=== PATIENT | female | born 1960 | race Caucasian/White ===

== ENCOUNTER → 2021-01-09 | Day surgery (SDC) | payer BC ==
[~2021-01-09] VITALS: Ht 152.4 cm; Wt 91.0 kg
[~2021-01-09] MED LIST: HYDROmorphone 2 MG/ML VIAL IVP PRN; IV RINGERS,LACTATED 1000ML 1,000 ML IV ONE; IV RINGERS,LACTATED 1000ML 1,000 ML IV SCH; LIDOCAINE 2% PF 5 ML VIAL. ONE; METF10007 PO; MORPHINE SULFATE 2 MG/ML VIAL. IVP PRN; PROCHLORPERAZINE 10 MG/2 ML VIAL. IVP PRN; PROPOFOL 10 MG/ML (20ML) VIAL. IV ONE; fentaNYL PF VIAL 100 MCG/2 ML VIAL IVP PRN
[2021-01-09 09:53] VITALS: BP 124/63
--- NOTE | 2021-01-13 09:11 | PATHOLOGY ---
[facility] Accession Number: [id number] . 01 Material submitted: . hepatic flexure - HEPATIC FLEXURE POLYP . 01 Clinical history: . RECTAL BLEEDING . 02 Diagnosis: Colon biopsies, hepatic flexure polyp: - Tubular adenoma. ([facility]:samra; 01/12/2021) MBR 01/12/2021 1559 Local . 02 Comment: There is no high-grade dysplasia or evidence of malignancy. ([facility]UAM:samra; 01/12/2021) . 02 Electronically signed: . Damian Kimball MD, Pathologist NPI- [id number] . 01 Gross description: . Received in formalin labeled "Negra Richards, hepatic flexure polyp" are multiple siddiqui-brown soft tissue fragments measuring in aggregate 2.4 x 1.6 x 0.4 cm. The specimen is submitted entirely in A1. ([facility]; 01/11/2021) . GZA/GZA 01/12/2021 1558 Local . 02 Pathologist provided ICD-10: D12.3 . 02 CPT . 483219 Specimen Comment: Report sent to / Performed at: 01 [facility] [address], [place] [id number] MD Camilo Scott MD Phone: [phone] Performed at: 02 [facility] [address] [place], [place] [id number] MD Damian Kimball MD Phone: [phone]
== END | disposition home or self-care (01) ==
LOC: SURG 06:53
PROVIDERS: ATTEND Internal Medicine Gastroenterology
DX: K92.1 Melena (principal); K64.0 First degree hemorrhoids; D12.3 Benign neoplasm of transverse colon; K92.2 Gastrointestinal hemorrhage, unspecified; K63.89 Other specified diseases of intestine; M19.90 Unspecified osteoarthritis, unspecified site; E11.9 Type 2 diabetes mellitus without complications; Z79.899 Other long term (current) drug therapy; Z79.84 Long term (current) use of oral hypoglycemic drugs; Z87.891 Personal history of nicotine dependence; Z98.890 Other specified postprocedural states; Z88.0 Allergy status to penicillin; Z88.2 Allergy status to sulfonamides; Z20.822 Contact with and (suspected) exposure to COVID-19
CPT/HCPCS: 45385; 87426; 88305; C9803; J2704; U0003